=== PATIENT | female | born 1965 | race Caucasian/White ===

== ENCOUNTER 2022-11-13 15:23 | Emergency (ER) | payer BC, OTHER | END 2022-11-13 16:25 | disposition home or self-care (01) | LOC: CSHERS 15:23 | DX: M25.572 Pain in left ankle and joints of left foot (principal); F17.210 Nicotine dependence, cigarettes, uncomplicated ==

== ENCOUNTER 2023-07-08 19:23 | Emergency (ER) | payer OTHER, SELFPAY ==
[2023-07-08] MEDS ORDERED: Cyclobenzaprine 10 MG TAB ONE (20:23)
[2023-07-08] MEDS ORDERED: Ketorolac Tromethamine 30 MG/ML VIAL ONE (20:23)
== END 2023-07-08 21:23 | disposition home or self-care (01) ==
LOC: CSHERS 19:23
DX: M25.511 Pain in right shoulder (principal); F17.210 Nicotine dependence, cigarettes, uncomplicated
CPT/HCPCS: 96372; J1885